=== PATIENT | male | born 1990 | race Caucasian/White ===

== ENCOUNTER 2017-04-13 10:10 | Emergency (ER) | payer MEDICAID ==
[~2017-04-13] VITALS: Ht 180.3 cm; Wt 67.0 kg
[2017-04-13] MEDS ORDERED: DIPHENHYDRAMINE 50 MG/ML, 1ML IVPush ONE (11:30)
[2017-04-13] MEDS ORDERED: PROCHLORPERAZINE 5 MG/ML, 2ML IVPush ONE (11:30)
[2017-04-13] MEDS ORDERED: SODIUM CHLORIDE 0.9% 1,000ML IVBOLUS ONE (11:30)
[2017-04-13] MEDS ORDERED: SODIUM CHLORIDE FLUSH 10ML SYR IVF ONE (11:30)
[2017-04-13 11:33] LABS: ASPARTATE AMINO TRANSFERASE 11 U/L (15-37); BLOOD UREA NITROGEN 8 mg/dL (7-18)
[2017-04-13 12:41] VITALS: BP 129/87
== END 2017-04-13 12:43 | disposition home or self-care (01) ==
LOC: ED 12:37
DX: R51 Headache (principal); F12.10 Cannabis abuse, uncomplicated
CPT/HCPCS: 36415; 80053; 85025; 96361; 96374; 96375; 99284; J0780; J1200; J7030